=== PATIENT | male | born 1995 | race Caucasian/White ===

== ENCOUNTER 2017-10-13 07:59 | Day surgery (SDC) | payer BC ==
[~2017-10-13 07:59] MED LIST: Lidocaine 1% 30 ML SDV ONE; ceFAZolin 1 GM in Premix Bag 1 BAG IV ONE
[2017-10-13] MEDS ORDERED: Ketorolac 30 MG/ML SDV IVPUSH ONE (08:00)
[2017-10-13] MEDS ORDERED: Lidocaine 2% 20 ML MDV INJECT ONE (08:00)
[2017-10-13] MEDS ORDERED: Midazolam 1 MG/ML 2 ML SDV IV ONE (08:00)
[2017-10-13] MEDS ORDERED: Dexamethasone 4 MG/ML SDV IV ONE (08:00)
[2017-10-13] MEDS ORDERED: Propofol 200 MG/20 ML SDV IV ONE (08:00)
[2017-10-13] MEDS ORDERED: fentaNYL 100 MCG/2 ML SDV IV ONE (08:00)
[2017-10-13] MEDS ORDERED: Ondansetron 4 MG/2 ML SDV IV ONE (08:00)
[2017-10-13] MEDS ORDERED: Lidocaine 1% 30 ML SDV INJECT ONE ×2 (08:00→10:00)
[2017-10-13] MEDS ORDERED: Lactated Ringers 1,000 ML IV SCH (08:30)
--- NOTE | 2017-10-13 18:23 | OR ---
DATE: 10/13/2017 PREOPERATIVE DIAGNOSIS: Right inguinal hernia. POSTOPERATIVE DIAGNOSIS: Right indirect inguinal hernia. ANESTHESIA: General. ESTIMATED BLOOD LOSS: Minimal. SPECIMEN: Hernia sac. INDICATION FOR PROCEDURE: This 21-year-old male has a symptomatic right inguinal hernia; by physical examination, this is a primary hernia and reducible. OPERATIVE FINDINGS: Right indirect inguinal hernia. DESCRIPTION OF PROCEDURE: After adequate preparation, a right groin incision was made and carried down through the external oblique to expose the spermatic cord and inguinal canal. The cord and sac were elevated out of the canal and the sac was from the cord down to the deep inguinal ring. A Prolene suture was used to stick tie the hernia sac and the distal end was amputated. The floor of the inguinal canal was repaired using Prolene mesh that was cut to fit the inguinal canal. This was sewn in place using a running suture along the inferior margin at the inguinal ligament and interrupted sutures superiorly to the rectus sheath. A keyhole had been placed around the cord structures, so that the cord could come through the mesh and the suture was placed laterally around the mesh tails to close the hole adequately around the cord. Hemostasis was controlled. The cord was placed back in the inguinal canal. The external oblique was closed with 0 Vicryl and Monocryl was used to close the skin. [facility] /[id number]
== END 2017-10-13 12:56 | disposition home or self-care (01) ==
LOC: DL.SDS 07:59
PROVIDERS: ATTEND Surgery
DX: K40.90 Unilateral inguinal hernia, without obstruction or gangrene, not specified as recurrent (principal)
CPT/HCPCS: 49505; J0690; J1100; J1885; J2250; J2405; J2704; J3010; J7120; C1781